=== PATIENT | male | born 1985 | race Caucasian/White ===

== ENCOUNTER 2025-02-15 06:02 | Emergency (ER) | payer OTHER, SELFPAY ==
[~2025-02-15] VITALS: Ht 182.9 cm; Wt 115.6 kg
[2025-02-15] MEDS ORDERED: AMOX875T2 PO (07:33)
[2025-02-15] MEDS: IBUPROFEN 600MG TAB PO ONE (07:37)
[2025-02-15 08:07] VITALS: BP 152/98; TEMP 98.3; O2SAT 99
== END 2025-02-15 08:09 | disposition home or self-care (01) ==
LOC: M ED 06:02
DX: H66.93 Otitis media, unspecified, bilateral (principal); J06.9 Acute upper respiratory infection, unspecified; F17.290 Nicotine dependence, other tobacco product, uncomplicated; Z79.2 Long term (current) use of antibiotics

== ENCOUNTER 2025-08-02 20:24 | Emergency (ER) | payer OTHER ==
[~2025-08-02] VITALS: Ht 182.9 cm; Wt 121.3 kg
[~2025-08-02 20:24] MED LIST: AMOX875T2 PO
[2025-08-02 21:34] LABS: BASO # 0.1 10^3/uL (0.0-0.2); BASO % 0.6 % (0.0-1.0); EOS # 0.2 10^3/uL (0.0-0.5); EOS % 2.7 % (0.0-3.0); LYMPH # 1.7 10^3/uL (1.5-5.0); LYMPH % 20.4 % (24.0-44.0); MONO # 0.8 10^3/uL (0.0-0.8); MONO % 9.2 % (2.0-8.0); NEUTROPHILS # 5.6 10^3/uL (1.5-8.5); NEUTROPHILS % 66.9 % (36.0-66.0); PLATELET COUNT, AUTOMATED 327 10^3/uL (150-450)
[2025-08-02 22:07] LABS: ALT/SGPT 46 U/L (7.0-40); AST/SGOT 34 U/L (<34); CALCIUM LEVEL 9.3 MG/DL (8.5-10.1); CARBON DIOXIDE LEVEL 26 MMOL/L (20-31); CHLORIDE LEVEL 106 MMOL/L (98-107); CREATININE FOR GFR 0.92 MG/DL (0.70-1.30); GLOMERULAR FILTRATION RATE > 90.0 (>60); MAGNESIUM LEVEL 2.0 MG/DL (1.8-2.4); POTASSIUM SERUM 3.9 MMOL/L (3.5-5.1); SODIUM LEVEL 142 MMOL/L (136-145)
[2025-08-02 22:09] LABS: CPK CREATINE PHOSPHOKINASE 350 U/L (46-171)
[2025-08-02 23:05] VITALS: BP 168/94; TEMP 97.7; O2SAT 99
== END 2025-08-02 23:09 | disposition home or self-care (01) ==
LOC: M ED 20:24
DX: S80.912A Unspecified superficial injury of left knee, initial encounter (principal); Y92.9 Unspecified place or not applicable; Y93.02 Activity, running; Y99.9 Unspecified external cause status